=== PATIENT | female | born 1990 | race Caucasian/White ===

== ENCOUNTER 2025-05-28 02:17 | Emergency (ER) | payer MEDICAID ==
[~2025-05-28] VITALS: Ht 165.1 cm; Wt 77.3 kg
[2025-05-28 02:20] VITALS: TEMP 98.1
[2025-05-28] MEDS ORDERED: METR500 PO (02:39)
[2025-05-28 02:56] VITALS: BP 121/61; PULSE 99; RESP 14; O2SAT 99
== END 2025-05-28 03:05 | disposition home or self-care (01) ==
LOC: EMS 02:19
DX: A59.01 Trichomonal vulvovaginitis (principal); Z76.0 Encounter for issue of repeat prescription; Z79.899 Other long term (current) drug therapy
CPT/HCPCS: 99283; Z7502